=== PATIENT | female | born 1955 | race Caucasian/White ===

== ENCOUNTER 2020-10-31 23:20 | Emergency (ER) | payer OTHER ==
--- OUTSIDE RECORDS SUMMARY | 2020-10-31 23:23 | XMS REPORT | Continuity of Care Document ---
:[address] [facility] t Address [address] [place] [address] Care Team Providers Name Role Phone JAMIL Attending Clinician Unavailable BRISA Attending Clinician Unavailable KARRI Attending Clinician Unavailable SEN Attending Clinician Unavailable CHRISTIANO Attending Clinician Unavailable MAXIMILIANO Attending Clinician Unavailable KATI Attending Clinician Unavailable KARRI Admitting Clinician Unavailable SEN Admitting Clinician Unavailable MAXIMILIANO Admitting Clinician Unavailable KATI Admitting Clinician Unavailable Payers Payer Name Policy Type Policy Number Effective Date Expiration Date S ource Problems This patient has no known problems. Allergies, Adverse Reactions, Alerts Allergy Allergy Status Severity Reaction(s) Onset Inactive Treating Comm ents Source Name Type Date Date Clinician tramadol DA Active AR 2018-06 [facility] [place] cefepime DA Active U 2018-06 [facility] 06[facility] [place] levoflox DA Active AR 2018-06 [facility] acin 06-06 [facility] [place] Tetanus DA Active AR 2018-06 [facility] Vaccines 06-06 [facility] [place] aspirin DA Active SV 2018- [facility] 06[facility] [place] doxycycl DA Active U 2018-06 [facility] ine 06-06 [facility] [place] aspirin DA Active SV 2018- [facility] 06-05 [place] [facility] cefepime DA Active U 2018-06 [facility] 06-05 [place] 00:[facility] Tetanus DA Active AR 2019-1 [facility] Vaccines 0-24 [place] and 00:[facility]: [facility]ox[facility] doxycycl DA Active U 2019-1 [facility] 0-24 [place] 00:[facility] tramadol DA Active AR 2019-1 [facility] 0-24 [place] 00:[facility] levoflox DA Active AR 2019-1 [facility] acin 0-24 [place] 00:00: [facility] Tetanus DA Active AR 2019-0 [facility] Vaccines 8-13 [place] and 00:00: [facility] Toxoid [facility] doxycycl DA Active U 2019-0 [facility] ine 8-13 [place] 00:00: [facility] tramadol DA Active SV 2019-0 [facility] 8-13 [place] 00:00: [facility] levoflox DA Active AR 2019-0 [facility] acin 8-13 [place] 00:00: [facility] Tetanus DA Active AR 2019-0 [facility] Vaccines 3-26 [place] and 00:00: [facility] Toxoid 00 [facility] doxycycl DA Active U 2019-0 [facility] ine 3-26 [place] 00:00: [facility] tramadol DA Active SV 2019-0 [facility] 3-26 [place] 00:00: [facility] levoflox DA Active AR 2019-0 [facility] acin 3-26 [place] 00:00: [facility] Tetanus DA Active AR 2019-0 [facility] Vaccines 2-04 [place] and 00:00: [place] Toxoid 00 [facility] doxycycl DA Active U 2019-0 [facility] ine 2-04 [facility] 00:00: Jurado 00 [facility] tramadol DA Active SV 2019-0 [facility] 2-04 [facility] 00:00: Jur[place] 00 [facility] levoflox DA Active AR 2019-0 [facility] acin 2-04 [facility] 00:00: Jur[place] 00 [facility] tramadol DA Active SV 2019-0 [facility] 1-08 [facility] [place] levoflox DA Active AR 2019-0 [facility] acin 1-08 [facility] [place] Tetanus DA Active AR 2018-1 [facility] Vaccines 0-22 [facility] 00:[facility]: [facility] [place] doxycycl DA Active U 2018-1 [facility] ine 0-22 [facility] [place] Tetanus DA Active AR 2017- [facility] Vaccines 0-19 [facility] 00:[facility]: [facility] [place] doxycycl DA Active U 2018- [facility] ine 0-19 [facility] [place] Tetanus DA Active AR 2018-0 [facility] Vaccines 4-23 Clear and 00:00: [place] Toxoid 00 [facility] doxycycl DA Active U 2018-0 [facility] ine 4-23 Clear 00:00: Jurado 00 [facility] Medications This patient has no known medications. Procedures This patient has no known procedures. Encounters Start End Encounter Admission Attending Care Care Encounter Source Date/Time Date/Time Type Type Clinicians Facility Department ID 2020-10-26 2020-10-26 Outpatient JAMIL, [facility] [id number] [place] 00:00:00 00:00:00 GATITO 522 [facility] 2020-10-26 2020-10-26 Outpatient JAMIL, [facility] [id number] [place] 00:00:00 00:00:00 GATITO [place] 2020-10-19 2020-10-19 Outpatient JAMIL, [facility] [id number] [place] 00:00:00 00:00:00 GATITO 423 [facility] 2020-10-13 2020-10-13 Outpatient LEDEZMA, [facility] [id number] [place] 00:00:00 00:00:00 JJ 766 [facility] 2020-10-05 2020-10-07 Inpatient RAMIRO ZENG [facility] [id number] [place] 00:00:00 00:00:00 860 [facility] 2020-10-04 2020-10-04 Outpatient TOMPSON, [facility] [id number] [place] 00:00:00 00:00:00 ALVARO 590 [facility] 2020-06-09 2020-06-09 Outpatient LEDEZMA, [facility] [id number] [place] 00:00:00 00:00:00 JJ 629 [facility] 2020-06-09 2020-06-09 Outpatient LEDEZMA, [facility] [id number] [place] 00:00:00 00:00:00 JJ 953 [facility] 2020-03-15 2020-03-15 Outpatient TOMPSON, [facility] [id number] [place] 00:00:00 00:00:00 ALVARO [address] 2020-03-14 2020-03-14 Outpatient KURRELMEYER [facility] [id number] [place] 00:00:00 00:00:00 , ZHOU [address] 2020-03-14 2020-03-14 Outpatient [facility] [id number] [place] 00:00:00 00:00:00 257 [facility] 2020-03-11 2020-03-12 Outpatient KANDALA, [facility] [id number] [place] 00:00:00 00:00:00 RANGANATH [address] 2020-01-07 2020-01-07 Outpatient LEDEZMA, [facility] [id number] [place] 00:00:00 00:00:00 JJ [address] 2020-01-07 2020-01-07 Outpatient LEDEZMA, [facility] [id number] [place] 00:00:00 00:00:[address] JJ [address] 2019-12-24 2019-12-24 Outpatient TOMPSON, [facility] [id number] [place] 00:00:00 00:00:00 ALVARO [address] 2019-12-23 2019-12-23 Outpatient TOMPSON, [facility] [id number] [place] 00:00:00 00:00:00 ALVARO [address] 2019-10-15 2019-10-15 Outpatient TOMPSON, [facility] [id number] [place] 00:00:00 00:00:00 ALVARO [address] 2019-10-04 2019-10-04 Outpatient TOMPSON, [facility] [id number] [place] 00:00:00 00:00:00 ALVARO [address] 2019-10-01 2019-10-01 Outpatient TOMPSON, [facility] [id number] [place] 00:00:00 00:00:00 ALVARO [address] 2019-08-13 2019-08-13 Outpatient LEDEZMA, [facility] [id number] [place] 00:00:00 00:00:00 JJ [address] 2019-08-13 2019-08-13 Outpatient LEDEZMA, [facility] [id number] [place] 00:00:00 00:00:00 JJ [address] 2019-07-28 2019-07-29 Outpatient KATI, [facility] [id number] [place] 00:00:00 00:00:00 AZRA [address] 2019-06-24 2019-06-24 Outpatient BRISA, [facility] [id number] [place] 00:00:00 00:00:00 JJ Villagomez [facility] Results Test Description Test Time Test Comments Results Result Comments Source BASIC METABOLIC PANEL 2020-04-12 12:58:00 Test Item Value Reference Range Interpretation Comme nts SODIUM (test code = NA) 140 mmol/L 136-145 N POTASSIUM (test code = K) 3.9 mmol/L 3.5-5.1 N CHLORIDE (test code = CL) 102.0 mmol/L 98-107 N CARBON DIOXIDE (test code = 27.2 mmol/L 21-32 N CO2) GLUCOSE (test code = GLU) 99 mg/dL 70-110 N BLOOD UREA NITROGEN (test code 18 mg/dL 7-18 N = BUN) GLOMERULAR FILTRATION RATE 72.8 >60 U nit of measure: (test code = GFR) mL/min/1.7 3 [id number] Range:Healthy A dults >90 mL/min/1.73 m2 For Chronic Kidney Disease: Stage II Mi ld Decrease in GFR 60-9 0 Stage III Moderate Decrease in GFR 30-59 Stage IV Severe Decrease in GFR 15-29 Stage V Kidney Failure <15 CREATININE (test code = CREAT) 0.79 mg/dL 0.55-1.30 N CALCIUM (test code = CA) 9.2 mg/dL 8.2-10.1 N CBC W/AUTO [id number] 12:52:00 Test Item Value Reference Range Interpretation Comments WHITE BLOOD CELL (test code = WBC) 5.6 K/mm3 5.8-11.0 L RED BLOOD CELL (test code = RBC) 4.65 M/mm3 4.2-5.4 N HEMOGLOBIN (test code = HGB) 10.8 g/dL 12-16 L HEMATOCRIT (test code = HCT) 37.3 % 37-47 N MEAN CELL VOLUME (test code = MCV) 80 fL 80-98 N MEAN CELL HGB (test code = MCH) 23.2 pg 27-34 L MEAN CELL HGB CONCENTRATION (test 29.0 g/dL 30.8-34.1 L code = MCHC) RED CELL DISTRIBUTION WIDTH (test 30.3 % 11-16 H code = RDW) PLT (test code = PLT) 152 K/mm3 130-400 N NEUTROPHIL % (test code = NT%) 73.5 % 45-70 H LYMPHOCYTE % (test code = LY%) 15.3 % 20-40 L MONOCYTE % (test code = MO%) 8.2 % 3-10 N EOSINOPHIL % (test code = EO%) 2.1 % 1-5 N BASOPHIL % (test code = BA%) 0.7 % 0.0-1.1 N NEUTROPHIL # (test code = NT#) 4.13 K/mm3 2.00-7.50 N LYMPHOCYTE # (test code = LY#) 0.86 K/mm3 1.50-4.00 L MONOCYTE # (test code = MO#) 0.46 K/mm3 0.2-0.8 N EOSINOPHIL # (test code = EO#) 0.12 K/mm3 0.04-0.4 N BASOPHIL # (test code = BA#) 0.04 K/mm3 0.02-0.10 N MANUAL DIFF REQUIRED (test code = NO MANUAL DIFF MDIFF) NUCLEATED RED BLOOD CELL (test 0 % 0-0 N code = NRBC) [facility] [id number] 11:20:00 Patient Name: MARIAM AUGUSTINE Unit No: [id number] EXAMS: CPT CODE: [id number] MRI JNT W/[place] [address] MRI OF THE RIGHT HIP DIAGNOSIS: There is an anterior cuello perior labral tear and degenerative change with cartilage thinning and irregularity superiorlyand posteriorly. Edematous change with cyst formation is also seen in the posterior acetabulum. COMMENT: COMPARISON: No prior exams available. Scans were performed in the sagittal, axial and coronal planes utilizing T1, spin density with fatsaturation, inversion recovery and T2-weighted pulse sequences. Bony and hyalinecartilage degenerative abnormalities are present as noted. The anterior superior labrum is torn. The remainder the labrum appears intact. No muscle strains or tears are seen. No tendon tears are identified. A moderate joint effusion and/or synovitis is present. There is no evidence for bursitis. at 1120 Reported and signed by: Tam Aguilar MD CC: Lisbet Diggs MD Technologist: Niall Martinez(R) Transcribed D/ (1119) RemaL [facility] NAME: MARIAM AUGUSTINE [address] [facility] PHYS: MARVIN.Efrain - Lisbet Diggs : 1955 AGE: 64 SEX: F [place] [address] LOC: Y.MRI PHONE #: [phone] EXAM DATE: 11/22/2019 STATUS: REG CLI FAX #: [phone] RAD #: D/C DT PAGE 1 Signed Report Patient Name: MARIAM AUGUSTINE Unit No: [id number] EXAMS: CPT CODE: [id number] MRI LW JNT W/[place] [id number] <Continued> Orig Print D/T: S: 11/22/2019 (1122) [facility] NAME: MARIAM AUGUSTINE [facility] [address] [place] [address] PHYS: MARVIN.Efrain - Lisbet Diggs : 1955 AGE: 64 SEX: F [place] [address] LOC: Y.MRI PHONE #: [phone] EXAM DATE: 11/22/2019 STATUS: REG CLI FAX #: [phone] RAD #: D/C DT PAGE 2 Signed Report- MRI LW JNT W/O CONT [id number] 10:11:00 Patient Name: MARIAM AUGUSTINE Unit No: [id number] EXAMS: CPT CODE: [id number] MRI LW JNT W/[place] [address] TECHNIQUE: Multiplanar multisequence MR images of the right hip wereobtained Images were then viewed on the PACS workstation in the axial, coronal and sagittal planes. COMPARISON: None available. FINDINGS: Bone: Marrow signal intensity is normal. Cartilage: No focal hyaline cartilage defects are seen. Subchondral cyst formation is present in the anterior superior acetabulum. Labrum: There is an anterior superior labral tear. The remainder the labrum is intact. Femoroacetabular Impingement Assessment: Alpha Angle (normal= <55 degrees) : 47 degrees Extraarticular Hip Impingement: No osseous proliferation of the anterior inferior iliac spine. Iliopsoas tendon is unremarkable. No evidence of ischiofemoral impingement. Tendons: Visualized gluteal and hamstring tendons are maintained. Bursitis: Asmall effusion is seen in the iliopsoas bursa which tracks into the pelvis and is consistent with bursitis or a labral cyst. Muscles: Signal intensity and volume are preserved. Other: Partially visualized intrapelvic structures are unremarkable. IMPRESSION: Degenerative change with labral tear. at 1011 Reported and signed by: Tma Aguilar MD CC: Lisbet Diggs MD Technologist: Faustina Otero, RT(R) Transcribed D/ (1011) t.TRACYR.JCL [facility] NAME: MARIAM AUGUSTINE [address] [place] [address] PHYS: GOMMU. - Lisbet Diggs : 1955 AGE: 63 SEX: F [place] [address] LOC: Y.MRI PHONE #: [phone] EXAM DATE: 06/30/2019 STATUS: DEP CLI FAX #: [phone] RAD #: D/C DT PAGE 1 Signed Report Patient Name: MARIAM AUGUSTINE Unit No: [id number] EXAMS: CPT CODE:[id number] [place] JNT W/[place] [address] <Continued> Orig Print D/T: S: 07/01/2019 (1015)[facility] NAME: MARIAM AUGUSTINE [address] [facility] PHYS: GOMMU. - Lisbet Diggs : 1955GE: 63 SEX: F [place] [address] LOC: Y.MRI PHONE #: [phone] EXAM DATE: 06/30/2019 STATUS: DEP CLI FAX #: [phone] RAD #: D/C DT PAGE 2 Signed ReportFE W/TOTAL IRON BINDING CAP.2019-04-08 05:56:00 Test Item Value Reference Range Interpretation Comments SERUM IRON (test code = IRON) 12 ug/dL 27-139 L TOTAL IRON BINDING CAPACITY 330 ug/dL 250-450 (test code = TIBC) UIBC (test code = UIBC) 318 ug/dL 118-369 IRON SATURATION (test code = 4.0 % 15-55 L FLAG: ALERT FESAT) CBC W/AUTO [id number] 02:28:00 Test Item Value Reference Range Interpretation Comments WHITE BLOOD CELL (test 8.1 K/mm3 6.6-12.1 DONE AT: [facility] code = WBC) [facility] [address] [place], [place] [address] RED BLOOD CELL (test 3.13 M/mm3 3.45-5.01 L code = RBC) HEMOGLOBIN (test code = 7.5 g/dL 10.7-13.9 L HGB) HEMATOCRIT (test code = 26.7 % 32.1-42.1 L HCT) MEAN CELL VOLUME (test 85 fL 84.1-94.8 code = MCV) MEAN CELL HGB (test code 24.0 pg 27-35 L = MCH) MEAN CELL HGB 28.1 gm/dL 32.2-34.1 L CONCENTRATION (test code = MCHC) RED CELL DISTRIBUTION 19.9 % 12.4-16.5 H WIDTH (test code = RDW) PLT (test code = PLT) 171 K/mm3 133-385 MEAN PLATELET VOLUME 12.4 fl 9.1-12.7 (test code = MPV) NEUTROPHIL % (test code 76.5 % 56.5-79.4 = NT%) LYMPHOCYTE % (test code 14.3 % 14.3-34.3 = LY%) MONOCYTE % (test code = 7.4 % 5.1-10.4 MO%) EOSINOPHIL % (test code 0.9 % 0.1-3.0 = EO%) BASOPHIL % (test code = 0.4 % 0.1-1.0 BA%) NEUTROPHIL # (test code 6.2 K/mm3 () = NT#) LYMPHOCYTE # (test code 1.2 K/mm3 () = LY#) MONOCYTE # (test code = 0.6 K/mm3 () MO#) EOSINOPHIL # (test code 0.07 K/mm3 () = EO#) BASOPHIL # (test code = 0 K/mm3 () BA#) PLATELET MORPHOLOGY NORMAL NORMAL REQUIRED (test code = PLTMR) CBC W/AUTO [id number] 02:28:00 Test Item Value Reference Range Interpretation Comments WHITE BLOOD CELL (test code 8.1 K/mm3 6.6-12.1 N = WBC) RED BLOOD CELL (test code = 3.13 M/mm3 3.45-5.01 L RBC) HEMOGLOBIN (test code = 7.5 g/dL 10.7-13.9 L HGB) HEMATOCRIT (test code = 26.7 % 32.1-42.1 L HCT) MEAN CELL VOLUME (test code 85 fL 84.1-94.8 N = MCV) MEAN CELL HGB (test code = 24.0 pg 27-35 L MCH) MEAN CELL HGB CONCETRATION 28.1 gm/dL 32.2-34.1 L (test code = MCHC) RED CELL DISTRIBUTION WIDTH 19.9 % 12.4-16.5 H (test code = RDW) PLATELET COUNT (test code = 171 K/mm3 133-385 N PLT) IMMATURE PLATELET FRACTION 0.0 % 0.0-10.8 N (test code = IPF) MEAN PLATELET VOLUME (test 12.4 fl 9.1-12.7 N code = MPV) NEUTROPHIL % (test code = 76.5 % 56.5-79.4 N NT%) LYMPHOCYTE % (test code = 14.3 % 14.3-34.3 N LY%) MONOCYTE % (test code = 7.4 % 5.1-10.4 N MO%) EOSINOPHIL % (test code = 0.9 % 0.1-3.0 N EO%) BASOPHIL % (test code = 0.4 % 0.1-1.0 N BA%) NEUTROPHIL # (test code = 6.2 K/mm3 NT#) LYMPHOCYTE # (test code = 1.2 K/mm3 LY#) MONOCYTE # (test code = 0.6 K/mm3 MO#) EOSINOPHIL # (test code = 0.07 K/mm3 EO#) BASOPHIL # (test code = 0.0 K/mm3 BA#) RBC MORPHOLOGY REQUIRED ABNORMAL NORMAL HYPO CHROMIA =1+ (test code = RBCM) PLATELET MORPHOLOGY NORMAL NORMAL REQUIRED (test code = PLTMR) CBC W/AUTO [id number] 09:13:00 Test Item Value Reference Range Interpretation Comments WHITE BLOOD CELL (test 6.7 K/mm3 5.8-11.0 N code = WBC) RED BLOOD CELL (test 2.61 M/mm3 4.2-5.4 L code = RBC) HEMOGLOBIN (test code = 6.1 g/dL 12-16 LL VERI FIED BY REPEAT HGB) ANALYSIS.CRITIC AL VALUE CALLED TO DANNA HARDING/RA [facility] ELIA K & CONFIRMED? YBY Y.LAB.MAV 04/07 0913 HEMATOCRIT (test code = 21.6 % 37-47 L HCT) MEAN CELL VOLUME (test 83 fL 80-98 N code = MCV) MEAN CELL HGB (test 23.4 pg 27-34 L code = MCH) MEAN CELL HGB 28.2 g/dL 30.8-34.1 L CONCENTRATION (test code = MCHC) RED CELL DISTRIBUTION 22.1 % 11-16 H WIDTH (test code = RDW) PLT (test code = PLT) 198 K/mm3 130-400 N MEAN PLATELET VOLUME 11.7 fL 8.9-12.1 N (test code = MPV) NEUTROPHIL % (test code 74.7 % 45-70 H = NT%) LYMPHOCYTE % (test code 15.1 % 20-40 L = LY%) MONOCYTE % (test code = 9.8 % 3-10 N MO%) EOSINOPHIL % (test code 0.0 % 1-5 L = EO%) BASOPHIL % (test code = 0.0 % 0.0-1.1 N BA%) NEUTROPHIL # (test code 5.03 K/mm3 2.00-7.50 N = NT#) LYMPHOCYTE # (test code 1.02 K/mm3 1.50-4.00 L = LY#) MONOCYTE # (test code = 0.66 K/mm3 0.2-0.8 N MO#) EOSINOPHIL # (test code 0.00 K/mm3 0.04-0.4 L = EO#) BASOPHIL # (test code = 0.00 K/mm3 0.02-0.10 L BA#) MANUAL DIFF REQUIRED NO MANUAL DIFF (test code = MDIFF) NUCLEATED RED BLOOD 0 % 0-0 N CELL (test code = NRBC) BASIC METABOLIC [id number] 13:12:00 Test Item Value Reference Range Interpretation Comments SODIUM (test code = 140 mmol/L 136-145 N NA) POTASSIUM (test code = 4.4 mmol/L 3.5-5.1 N K) CHLORIDE (test code = 102.0 mmol/L 98-107 N CL) CARBON DIOXIDE (test 29.1 mmol/L 21-32 N code = CO2) GLUCOSE (test code = 98 mg/dL 70-110 N GLU) BLOOD UREA NITROGEN 21 mg/dL 7-18 H (test code = BUN) GLOMERULAR FILTRATION 74.1 >60 Unit o f measure: RATE (test code = GFR) mL/mi n/1.73 [id number] Range:Healthy Adults >90 mL/min/1.73 m2 For Chronic Kidney Disease: St age II Mild Decrease in GFR 60-90 St age III Moderate Decrease in GFR 30-59 Stage IV Severe Decre ase in GFR 15- 29 Stage V Kidney Failure <15 CREATININE (test code 0.78 mg/dL 0.55-1.30 N = CREAT) CALCIUM (test code = 9.2 mg/dL 8.2-10.1 N CA) - MRI LW JNT W/O CONT [id number] 10:12:00 Patient Name: MARIAM AUGUSTINE Unit No: [id number] EXAMS: CPT CODE: [id number] MRI LW JNT W/[place] [address] MRI OF THE PELVIS AND HIPS WITH SPECIAL ATTENTION TO THE RIGHT HIP DI AGNOSIS: There is a right hip labral tear involving the anterior and posterior superior labrum. Also noted is an indeterminate benign- appearing 2 cm lesion in the proximal metaphysis of the right femur. X- ray correlation is recommended. COMMENT: COMPARISON: No prior exams available. Scans were performed in the sagittal, axial and coronal planes utilizing T1, spin density with fat saturation, inversion recovery and T2-weighted pulse sequences. A well- circumscribed lesion in the right proximal femur is seen which is heterogeneously low in signal on T1-weighted images and increased in sign al on T2-weighted images. The labrum of the right hip is torn. No tendon tears are seen. There is no evidence for bursitis. No muscle strains or tears are identified. at 1012 Reported and signed by: Tam Aguilar MD CC: Ruben Wolff MD Technologist: DELVIN FRIAS MRI Transcribed D/ (1012) [facility] NAME: MARIAM AUGUSTINE [address] [facility] PHYS: PAYTONAZALEA Ruben Morales MD : 1955 AGE: 63 SEX: F [place] [address] LOC: Y.MRI PHONE #: [phone] EXAM DATE: 01/12/2019 STATUS: DEP CLI FAX #: [phone] RAD#: D/C DT PAGE 1 Signed Report Patient Name: MARIAM AUGUSTINE Unit No: [id number] EXAMS: CPT CODE: [id number] MRI LW JNT W/[place] [id number] <Continued> Orig Print D/T: S: 01/13/2019 (1015) [facility] NAME: MARIAM AUGUSTINE [address] [facility] PHYS: CLAY Vann Ruben Wolff MD : 1955 AGE: 63 SEX: F [place] [address] LOC: Y.MRI PHONE #: [phone] EXAM DATE: 01/12/2019 STATUS: DEP CLI FAX #: [phone] RAD #: D/C DTPAGE 2 Signed Report- XR FLUORO [id number] 16:46:00 Patient Name: MARIAM AUGUSTINE Unit No: [id number] EXAMS: CPT CODE: [id number] XR FLUORO NDL 05007 FLUOROSCOPICALLY GUIDED INJECTION OF THE RIGHT GLUTEUS MEDIUS TENDON INSERTION WITH STEROID AND LIDOCAINE COMMENT: COMPARISON: No prior exams available. After informed consent was obtained a needle was placed on the gluteus mediustendon insertion with fluoroscopic guidance. Its position was confirmed with an AP radiograph. 0.1 minutes of fluoroscopy time was utilized. Subsequently 2mL of Kenalog 40 mg per cc and 2mL of 1 percent lidocaine was injected. No immediate complications wereencountered. at 1646 Reported and signed by: Tam Aguilar MD CC: Ruben Wolff MD Technologist: RT. Yunier(R) Transcribed D/ (1645) RemaL [facility] NAME: MARIAM AUGUSTINE [address] [facility] PHYS: Ruben Sarmiento MD : 1955 AGE: 63 SEX: F [place], [place] [address] LOC: Y.MRI PHONE #: [phone] EXAM DATE: 01/12/2019 STATUS: REG CLI FAX #: [phone] RAD #: D/C DT PAGE 1 Signed Report Patient Name: MARIAM AUGUSTINE Unit No: [id number] EXAMS: CPT CODE: [id number] XR FLUORO NDL 90986 <Continued> Orig Print D/T: S: 01/12/2019 (992) [facility] NAME: MARIAM AUGUSTINE [address] [facility] PHYS: PAYTONAZALEA Vann Ruben Wolff MD : 1955 AGE: 63 SEX: F [place], [place] [address] LOC: Y.MRI PHONE #: [phone] EXAM DATE: 01/12/2019 STATUS: REG CLI FAX #: [phone] RAD #: D/C DT PAGE 2 Signed Report - XR KNEE 1 OR 2 V [id number] 20:14:00 Patient Name: MARIAM AUGUSTINE Unit No: [id number] EXAMS: CPT CODE: [id number] XR KNEE 1 OR 2 [place] [id number] IMAGES PROVIDED: 1 FINDINGS: Single lateral view of the right knee demonstrates constrained arthroplasty without gross complication. No acute fracture. IMPRESSION: Postoperative exam as above. at 2014 Reported and signed by: Malick Bedolla M.D. CC: Ruben Wolff MD Technologist: ABHISHEK COLON (RT.R) Transcribed D/ (2013) AniaJ [facility] NAME: MARIAM AUGUSTINE [address] [facility] PHYS: Ruben Sarmiento MD : 1955 AGE: 62 SEX: F [place] [address] LOC: EVITA PHONE #: [phone] EXAM DATE: 08/26/2018 STATUS: REG [facility] FAX #: [phone] RAD #: D/C DT PAGE 1 Signed Report Patient Name: MARIAM AUGUSTINE Unit No: [id number] EXAMS: CPT CODE: [id number] XR KNEE 1 OR 2 [place] RT [address] <Continued> Orig Print D/T: S: 08/26/2018 (2017) [facility] NAME: MARIAM AUGUSTINE [address] [facility] PHYS: CLAY Vann Ruben Wolff MD : 1955 AGE: 62 SEX: F [place] [address] LOC: EVITA PHONE #: [phone] EXAM DATE: 08/26/2018 STATUS: REG [facility] [place] FAX #: [phone] RAD #: D/C DT PAGE 2 Signed ReportCBC W/AUTO [id number] 16:56:00 Test Item Value Reference Range Interpretation Comments WHITE BLOOD CELL (test code = WBC) 5.4 K/mm3 5.8-11.0 L RED BLOOD CELL (test code = RBC) 4.52 M/mm3 4.2-5.4 N HEMOGLOBIN (test code = HGB) 11.2 g/dL 12-16 L HEMATOCRIT (test code = HCT) 36.9 % 37-47 L MEAN CELL VOLUME (test code = MCV) 82 fL 80-98 N MEAN CELL HGB (test code = MCH) 24.8 pg 27-34 L MEAN CELL HGB CONCENTRATION (test 30.4 g/dL 30.8-34.1 L code = MCHC) RED CELL DISTRIBUTION WIDTH (test 20.6 % 11-16 H code = RDW) PLT (test code = PLT) 252 K/mm3 130-400 N NEUTROPHIL % (test code = NT%) 63.9 % 45-70 N LYMPHOCYTE % (test code = LY%) 25.7 % 20-40 N MONOCYTE % (test code = MO%) 6.7 % 3-10 N EOSINOPHIL % (test code = EO%) 2.2 % 1-5 N BASOPHIL % (test code = BA%) 1.1 % 0.0-1.1 N NEUTROPHIL # (test code = NT#) 3.44 K/mm3 2.00-7.50 N LYMPHOCYTE # (test code = LY#) 1.38 K/mm3 1.50-4.00 L MONOCYTE # (test code = MO#) 0.36 K/mm3 0.2-0.8 N EOSINOPHIL # (test code = EO#) 0.12 K/mm3 0.04-0.4 N BASOPHIL # (test code = BA#) 0.06 K/mm3 0.02-0.10 N MANUAL DIFF REQUIRED (test code = NO MANUAL DIFF MDIFF) NUCLEATED RED BLOOD CELL (test 0 % 0-0 N code = NRBC) SED [id number] 16:56:00 Test Item Value Reference Range Interpretation Comments SED RATE (test code = SEDW) 37 mm/hr 0-20 H C REACTIVE [id number] 15:35:00 Test Item Value Reference Range Interpretation Comments C REACTIVE PROTEIN (test code = 0.7 mg/dL <0.9 CRP) CBC W/AUTO [id number] 15:27:00 Test Item Value Reference Range Interpretation Comments WHITE BLOOD CELL (test code = WBC) 5.4 K/mm3 5.8-11.0 L RED BLOOD CELL (test code = RBC) 4.52 M/mm3 4.2-5.4 N HEMOGLOBIN (test code = HGB) 11.2 g/dL 12-16 L HEMATOCRIT (test code = HCT) 36.9 % 37-47 L MEAN CELL VOLUME (test code = MCV) 82 fL 80-98 N MEAN CELL HGB (test code = MCH) 24.8 pg 27-34 L MEAN CELL HGB CONCENTRATION (test 30.4 g/dL 30.8-34.1 L code = MCHC) RED CELL DISTRIBUTION WIDTH (test 20.6 % 11-16 H code = RDW) PLT (test code = PLT) 252 K/mm3 130-400 N NEUTROPHIL % (test code = NT%) 63.9 % 45-70 N LYMPHOCYTE % (test code = LY%) 25.7 % 20-40 N MONOCYTE % (test code = MO%) 6.7 % 3-10 N EOSINOPHIL % (test code = EO%) 2.2 % 1-5 N BASOPHIL % (test code = BA%) 1.1 % 0.0-1.1 N NEUTROPHIL # (test code = NT#) 3.44 K/mm3 2.00-7.50 N LYMPHOCYTE # (test code = LY#) 1.38 K/mm3 1.50-4.00 L MONOCYTE # (test code = MO#) 0.36 K/mm3 0.2-0.8 N EOSINOPHIL # (test code = EO#) 0.12 K/mm3 0.04-0.4 N BASOPHIL # (test code = BA#) 0.06 K/mm3 0.02-0.10 N MANUAL DIFF REQUIRED (test code = NO MANUAL DIFF MDIFF) NUCLEATED RED BLOOD CELL (test 0 % 0-0 N code = NRBC) SED [id number] 15:27:00 Test Item Value Reference Range Interpretation Comments SED RATE (test code = SEDW) mm/hr 0-20 BASIC METABOLIC [id number] 06:47:00 Test Item Value Reference Range Interpretation Comments SODIUM (test code = 141 mmol/L 136-145 N NA) POTASSIUM (test code = 4.6 mmol/L 3.5-5.1 N K) CHLORIDE (test code = 102.0 mmol/L 98-107 N CL) CARBON DIOXIDE (test 27.6 mmol/L 21-32 N code = CO2) GLUCOSE (test code = 137 mg/dL 70-110 H GLU) BLOOD UREA NITROGEN 14 mg/dL 7-18 N (test code = BUN) GLOMERULAR FILTRATION 58.5 >60 Unit o f measure: RATE (test code = GFR) mL/mi n/1.73 [id number] Range:Healthy Adults >90 mL/min/1.73 m2 For Chronic Kidney Disease: St age II Mild Decrease in GFR 60-90 St age III Moderate Decrease in GFR 30-59 Stage IV Severe Decre ase in GFR 15- 29 Stage V Kidney Failure <15 CREATININE (test code 0.96 mg/dL 0.55-1.30 N = CREAT) CALCIUM (test code = 9.1 mg/dL 8.2-10.1 N CA) HGB [id number] 06:02:00 Test Item Value Reference Range Interpretation Comments HEMOGLOBIN (test code = HGB) 9.7 g/dL 12-16 L HEMATOCRIT (test code = HCT) 31.3 % 37-47 L SURGICAL [id number] 13:32:00 RUN DATE: 04/15/18 [facility] PAGE 1 RUN TIME: 2240 Specimen Inquiry RUN USER: INTERFACE PATIENT: MARIAM AUGUSTINE LOC: Y.CP2 U #: [id number] AGE/SX: 62/F ROOM: [facility] RE03/23/18[facility] DR: Ruben Wolff MD : 51 BED: A DIS: 03/26/18 STATUS: DIS IN TLOC: SPEC #: [id number] RECD: [id number]/23/[id number] STATUS: VENUS MANNING #: [id number] ROLY: 03/23/18-[address] [facility] [address]: Ruben Wolff MD ENTERED: 03/23/18-1616 SP TYPE: SURG OTHR DR: No Primary or Family Physician Jorge L Bonilla MD, Seema MDORDERED: GROSS, ID ONLY COMMENTS: SOURCE: RIGHT KNEE EXPLANTS CODES: [id number] - SKELETAL SYSTEM [id number] - TRABECULA, NOS OF0106 - RIGHT KNEE COPIES TO: No Primary or Family Physician Jorge L Bonilla MD [id number] [id number] [email or web address] Laura Lewis MD [address] [place] [address] Ruben Wolff MD [address] [place] [address] [email or web address] PROCEDURES: GROSS, ID ONLY (Incomplete) TISSUES: HARDWARE ANATOMIC PATHOLOGY DIAGNOSIS BONE, RIGHT KNEE, ARTHROPLASTY: -FRAGMENTS OF TRABECULAR BONE AND MARROW -GROSS DESCRIPTION OF EXPLANTS CONTINUED ON NEXT PAGE RUN DATE: 04/15/18 [facility] PAGE 2 RUN TIME: 2241 Specimen Inquiry RUN USER: INTERFACE SPEC #: [id number] PATIENT: MARIAM AUGUSTINE #[id number] (Continued) CLINICAL HISTORY/PRE-OP DIAG Infected right total knee arthroplasty. COMMENTS PERMANENT SECTIONS PREPARED AT: [facility] DEPARTMENT OF PATHOLOGY [facility] [place] [address] GROSS DESCRIPTION The case is received in one part, labeled with the patient's name "Mariam Augustine" andaccession number "[id number]", accompanied by a requisition slip labeled with the samepatient name and accession number. Received in formalin labeled "right knee explants" are portions of metal and plastic kneereplacement specimens. These pieces of synthetic knee replacement range from a metallic,flattened base having dimensionsof 6.0 x 4.0 cm with a length of 5.5 cm. There aredesignators as follows: "[id number] SZ2.5." A portion of plastic, which fits andsits upon the aforementioned base, having dimensions of 6.5 x 4.0 cm with a thicknessranging from 1.0 cm to 2.5 cm. The plastic attachment as the designator "[id number]." Apossible serial number for this portion of plastic is "[id number]." The third portion ofexplant is metallic with rounded possible articular surfaces having dimensions of 7.5 x 6.0x 2.5 cm. One aspect of this explant is covered in white-rivas cement and portions of ragged,red-pink cancellous bone. A designator is partially legible and reads "[email or web address]." Alsoreceived in the same container are portions of white-rivas, possible bone cement withadherent portions of yellow-rivas to rivas-pink, gritty bone.Portions of the bone aresubmitted in cassette A1 for microscopic examination. There are no sections submitted fromthe remainder of the specimen. (wf) MICROSCOPIC The specimen consists of orthopedic hardware. The histologic material consists oftrabecular type bone with marrow and hemorrhage. Signed SIGNATURE ON MARGARET ArmstrongPeewee 03/25/18 1332 END OF REPORT
--- NOTE | 2020-10-31 23:51 | ER ---
Nurse's Notes [facility] Name: Mariam Mclean Age: 64 yrs Sex: Female : 1955 Arrival Date: 10/31/2020 Time: 23:24 Bed Waiting Private MD: Diagnosis: Presentation: 10/31 23:34 Chief complaint: Patient states: she checked her blood pressure tonight and it was high bb so she took hydralazine and clonidine which she has as emergency medicine for high blood pressure she also had some slurred speech which she has had for weeks it went away but tonight at 2100 she started having slurred speech again. Coronavirus screen: At this time, the client does not indicate any symptoms associated with coronavirus-19. Ebola Screen: No symptoms or risks identified at this time. Initial Sepsis Screen: Does the patient meet any 2 criteria? No. Patient's initial sepsis screen is negative. Does the patient have a suspected source of infection? No. Patient's initial sepsis screen is negative. Risk Assessment: Do you want to hurt yourself or someone else? Patient reports no desire to harm self or others. Onset of symptoms was October 31, 2020. 23:34 Method Of Arrival: Wheelchair bb 23:34 Acuity: TOMAS 3 bb 23:48 Note after lengthy conversation and repeated blood pressure pt and spouse decide to bb leave without being seen by provider. Historical: - Allergies: 23:38 Doxycycline; bb - Immunization history:: Adult Immunizations up to date. - Social history:: Smoking status: Patient/guardian denies using tobacco, the patient reports quitting approximately 30 years ago. Vital Signs: 23:34 BP 120 / 53; Pulse 62; Resp 16 S; Temp 97.4(TE); Pulse Ox 98% on R/A; Weight 69.85 kg bb (R); Height 5 ft. 5 in. (165.10 cm) (R); Pain 0/10; 23:49 BP 118 / 55; bb 23:34 Body Mass Index 25.63 (69.85 kg, 165.10 cm) bb ED Course: 23:24 Patient arrived in ED. am4 23:38 Triage completed. bb 23:38 Arm band placed on Patient placed in an exam room, on a stretcher, on pulse oximetry. bb Family accompanied patient. Administered Medications: No medications were administered Outcome: 23:51 Patient left the ED. bb Signatures: Chichi Demarco RN RN Marina Hughes
[2020-11-01 00:12] VITALS: BP 118/55; TEMP 97.4; O2SAT 98
== END 2020-10-31 23:51 | disposition left against medical advice (07) ==
LOC: ER 23:20
DX: I10 Essential (primary) hypertension (principal); R47.81 Slurred speech; Z53.21 Procedure and treatment not carried out due to patient leaving prior to being seen by health care provider; Z87.891 Personal history of nicotine dependence
CPT/HCPCS: 99282